=== PATIENT | female | born 1995 | race Caucasian/White ===

== ENCOUNTER → 2016-09-09 | Outpatient (CLI) | payer OTHER ==
[~2016-09-09] MED LIST: ALBU1AER9; DOXY25TA7 PO; PRENTAB26 PO
[2016-09-09 18:53] LABS: URINE APPEARANCE CLEAR (CLEAR); URINE BILIRUBIN NEG (NEG); URINE COLOR YELLOW; URINE NITRITE POS (NEG); URINE SPECIFIC GRAVITY 1.013 (1.000-1.030); UROBILINOGEN NEG (NEG)
[2016-09-09 18:58] LABS: MANUAL MICROSCOPIC REQUIRED? NO; REVIEW REQ? NO
[2016-09-12 13:22] LABS: CHLAMYDIA TRACH RNA*** NOT DETECTED (NOT DETECTED); GC (NEIS GONORRHOEAE)RNA** NOT DETECTED (NOT DETECTED)
== END | disposition home or self-care (01) ==
LOC: C.LABSPEC 17:35
PROVIDERS: ATTEND Obstetrics & Gynecology
DX: Z34.81 Encounter for supervision of other normal pregnancy, first trimester (principal)

== ENCOUNTER → 2016-09-09 | Outpatient (CLI) | payer OTHER ==
[2016-09-09 17:27] LABS: COMPLETE YES; EOS % 0.2 %; HEMATOCRIT 35.7 % (37-47); IG% 0.1 %; LYMPH % 23.1 %; LYMPH ABS # 2.23 K/uL (1.2-3.4); MEAN CELL VOLUME 90.2 fL (80-100); MEAN CORPUSCULAR HEMOGLOBIN 31.1 pg (25-34); MEAN CORPUSCULAR HGB CONC 34.5 g/dl (32-36); MEAN PLATELET VOLUME 9.9 fL (7.4-10.4); MONO % 4.9 %; NEUT % 71.7 %; PLATELET COUNT 331 K/uL (130-400); RED BLOOD COUNT 3.96 M/uL (4.2-5.4); WHITE BLOOD COUNT 9.66 K/uL (4.8-10.8)
== END | disposition home or self-care (01) ==
LOC: C.LAB1850 16:24
PROVIDERS: ATTEND Obstetrics & Gynecology
DX: Z34.81 Encounter for supervision of other normal pregnancy, first trimester (principal)

== ENCOUNTER → 2016-10-13 | Outpatient (CLI) | payer OTHER | END | disposition home or self-care (01) | LOC: C.LAB1850 14:24 | PROVIDERS: ATTEND Obstetrics & Gynecology | DX: O23.40 Unspecified infection of urinary tract in pregnancy, unspecified trimester (principal) ==

== ENCOUNTER → 2016-10-30 | Outpatient (CLI) | payer OTHER ==
[2016-10-30 11:07] LABS: GTGD 50 Grams
== END | disposition home or self-care (01) ==
LOC: C.LAB1850 09:20
PROVIDERS: ATTEND Obstetrics & Gynecology
DX: Z34.82 Encounter for supervision of other normal pregnancy, second trimester (principal)

== ENCOUNTER → 2016-11-10 | Outpatient (CLI) | payer OTHER ==
[2016-11-10 17:56] LABS: URINE APPEARANCE CLEAR (CLEAR); URINE BILIRUBIN NEG (NEG); URINE COLOR YELLOW; URINE NITRITE NEG (NEG); URINE PH 7.5 (4.5-7.5); URINE SPECIFIC GRAVITY 1.012 (1.000-1.030); UROBILINOGEN NEG (NEG)
[2016-11-10 17:58] LABS: MANUAL MICROSCOPIC REQUIRED? NO; REVIEW REQ? YES
== END | disposition home or self-care (01) ==
LOC: C.LAB1850 16:41
PROVIDERS: ATTEND Obstetrics & Gynecology
DX: O26.892 Other specified pregnancy related conditions, second trimester (principal); Z3A.00 Weeks of gestation of pregnancy not specified

== ENCOUNTER → 2016-11-27 | Outpatient (CLI) | payer OTHER | END | disposition home or self-care (01) | LOC: C.LABSPEC 11:28 | PROVIDERS: ATTEND Obstetrics & Gynecology | DX: O23.42 Unspecified infection of urinary tract in pregnancy, second trimester (principal); Z3A.00 Weeks of gestation of pregnancy not specified ==

== ENCOUNTER → 2016-12-11 | Outpatient (CLI) | payer OTHER ==
[2016-12-11 18:05] LABS: URINE APPEARANCE CLEAR (CLEAR); URINE BILIRUBIN NEG (NEG); URINE COLOR YELLOW; URINE EPITHELIAL CELL AUTO 20-30 /lpf (0-5); URINE NITRITE NEG (NEG); URINE SPECIFIC GRAVITY 1.018 (1.000-1.030); UROBILINOGEN NEG (NEG)
[2016-12-11 18:07] LABS: MANUAL MICROSCOPIC REQUIRED? NO; REVIEW REQ? NO
== END | disposition home or self-care (01) ==
LOC: C.LABSPEC 17:29
PROVIDERS: ATTEND Obstetrics & Gynecology
DX: O26.892 Other specified pregnancy related conditions, second trimester (principal); Z3A.00 Weeks of gestation of pregnancy not specified

== ENCOUNTER → 2017-01-21 | Outpatient (CLI) | payer OTHER ==
[2017-01-21 15:37] LABS: URINE APPEARANCE CLOUDY (CLEAR); URINE BILIRUBIN NEG (NEG); URINE COLOR YELLOW; URINE EPITHELIAL CELL AUTO >30 /lpf (0-5); URINE NITRITE NEG (NEG); URINE PH >= 9.0 (4.5-7.5); URINE SPECIFIC GRAVITY 1.016 (1.000-1.030); UROBILINOGEN NEG (NEG)
[2017-01-21 15:50] LABS: MANUAL MICROSCOPIC REQUIRED? NO; REVIEW REQ? YES
== END | disposition home or self-care (01) ==
LOC: C.LABSPEC 14:59
PROVIDERS: ATTEND Obstetrics & Gynecology
DX: Z34.83 Encounter for supervision of other normal pregnancy, third trimester (principal)

== ENCOUNTER → 2017-01-21 | Outpatient (CLI) | payer OTHER ==
[2017-01-21 12:35] LABS: HEMATOCRIT 32.9 % (37-47)
[2017-01-21 14:16] LABS: GTGD 50 Grams
== END | disposition home or self-care (01) ==
LOC: C.LAB1850 10:03
PROVIDERS: ATTEND Obstetrics & Gynecology
DX: Z34.83 Encounter for supervision of other normal pregnancy, third trimester (principal)

== ENCOUNTER 2017-02-06 17:06 | Outpatient (CLI) | payer OTHER ==
[2017-02-06] MEDS ORDERED: TERBUTALINE SULFATE 1 MG/ML VIAL SQ PRN (18:30)
[2017-02-06] MEDS ORDERED: LACTATED RINGER'S 1000ML 500 ML IV ONE (18:30)
--- NOTE | 2017-02-06 19:15 | DIAGNOSTIC IMAGING REPORT ---
LIMITED (US) CLINICAL HISTORY: Equivocal ruptured membranes- check XUAN. COMPARISON STUDY: ultrasound November 27, 2016. TECHNIQUE: Transabdominal sonography of the fetus was performed. FINDINGS: A single viable intrauterine gestation is noted. heart rate is normal at 134 bpm. Cervix is closed, measuring approximately 3.7 cm in length. Amniotic fluid index measures 16.7 cm. Placenta is located anteriorly. No placental abnormalities are identified. Please note that a dedicated anatomical survey was not performed. Position is vertex. IMPRESSION: 1. Single viable intrauterine gestation with normal heart rate of 134 bpm. 2. Normal amniotic fluid index of 16.7 cm. 3. Closed cervix, measuring approximately 3.7 cm in length. Electronically signed by: Alan Herrera M.D. 02/06/2017 7:14 PM Dictated Date/Time: 02/06/2017 7:08 PM
--- NOTE | 2017-02-06 21:26 | HISTORY & PHYSICAL EXAMINATION ---
DATE OF ADMISSION: 02/06/2017 HISTORY OF PRESENT ILLNESS: The patient is a 21-year-old 3, para 1-0-1-1 white female, EDC of 04/10/2016; who presents at 31 weeks with a history of leaking fluid from her vagina. She was seen in the office initially by my partner Dr. Galvan who felt that Nitrazine was positive and that she did see ferning. She was sent to labor and delivery for further evaluation to confirm the presence of ruptured membranes. Upon arrival here, a speculum exam was performed and there was some mucus type discharge, Nitrazine was equivocal and there was no evidence of ferning. An AmniSure was done at that time and it was faintly positive. The patient also had an FFN at that time. She was having some cramping, but it was mild cramping. Baby was reactive and category 1 on the monitor. An AmniSure was repeated and it again was faintly positive, again ferning was negative and Nitrazine was equivocal. There was no pooling of amniotic fluid. Again, there was some mucousy discharge. FFN came back and was reported as positive. The patient received 1 dose of terbutaline because of the cramping and mild contractions on the monitor, waiting for the FFN to be resulted. She also received 1 liter of lactated Ringer's for hydration. She feels the cramping is better, again the baby continues to look category 1. She was sent for an ultrasound because of the equivocal nature of all of these studies. Amniotic fluid index was 16.7 with a cervical length of 3.7 cm. She has not noted any further significant leakage of fluid since her arrival here in labor and delivery. After discussion with the maternal medicine doctor at [facility], Dr. Lizarraga, he recommended reevaluating either at [facility] or here in labor and delivery at [facility] tomorrow morning. Because of the positive AmniSure and the FFN being positive, after some discussion, the patient will be seen at [facility] for further evaluation this evening. Based on their findings, we will await the recommendation as far as further testing and any need to transfer to home or to remain admitted at [facility]. Her first was completely uncomplicated except for some irritability of her uterus, although she did deliver at 38 weeks. She has no other medical issues. No allergies. GBS status is unknown at this time. PHYSICAL EXAMINATION: ABDOMEN: Soft and nontender. PELVIC: Cervix exam was deferred except for speculum exam which revealed the cervix appeared to be long and closed with egg white type discharge present. There was no bleeding noted. ASSESSMENT: A 31-week intrauterine with equivocal evidence of ruptured membranes and a positive fibronectin. We will have her be evaluated at [facility] for further assessment of ruptured membranes and possible labor. Based on those findings, we will follow [facility] recommendations for further testing or assessment. WERNER
== END 2017-02-06 21:43 | disposition home or self-care (01) ==
LOC: C.OPB 17:06 → C.LD 17:06 → C.OPB 21:43
PROVIDERS: ATTEND Obstetrics & Gynecology
DX: O62.9 Abnormality of forces of labor, unspecified (principal); Z3A.31 31 weeks gestation of pregnancy

== ENCOUNTER 2017-02-09 15:55 | Outpatient (CLI) | payer OTHER ==
[~2017-02-09] VITALS: Ht 165.1 cm; Wt 66.4 kg
[2017-02-09 16:30] VITALS: Ht 165.1 cm; Wt 66.4 kg
== END 2017-02-09 17:11 | disposition home or self-care (01) ==
LOC: C.LD 15:55 → C.OPB 15:55
PROVIDERS: ATTEND Obstetrics & Gynecology
DX: O26.893 Other specified pregnancy related conditions, third trimester (principal); Z3A.31 31 weeks gestation of pregnancy; R10.9 Unspecified abdominal pain

== ENCOUNTER 2017-02-17 10:48 | Outpatient (CLI) | payer OTHER ==
[~2017-02-17] VITALS: Ht 168.9 cm; Wt 66.4 kg
[2017-02-17 11:15] VITALS: Ht 168.9 cm; Wt 66.4 kg
[2017-02-17] MEDS ORDERED: ALBUTEROL HFA 8 GM INHALER INH PRN (11:30)
[2017-02-17 11:44] LABS: BASO % 0.1 %; BASO ABS # 0.01 K/uL (0-0.2); COMPLETE YES; EOS % 0.3 %; HEMATOCRIT 29.4 % (37-47); IG% 0.9 %; LYMPH % 22.1 %; LYMPH ABS # 2.02 K/uL (1.2-3.4); MEAN CELL VOLUME 95.8 fL (80-100); MEAN CORPUSCULAR HEMOGLOBIN 32.9 pg (25-34); MEAN CORPUSCULAR HGB CONC 34.4 g/dl (32-36); MEAN PLATELET VOLUME 9.7 fL (7.4-10.4); MONO % 5.6 %; PLATELET COUNT 244 K/uL (130-400); RED BLOOD COUNT 3.07 M/uL (4.2-5.4); WHITE BLOOD COUNT 9.16 K/uL (4.8-10.8)
[2017-02-17] MEDS ORDERED: BETAMETH SOD PHOS/ACETATE IA 6 MG/ML IM SCH (12:15)
[2017-02-17] MEDS ORDERED: INFLUENZA ADMINISTRATION CHARGE ONE (12:30)
[2017-02-17] MEDS ORDERED: INFLUENZA VIRUS QUAD VACCINE 0.5 ML SYR IM. ONE (12:30)
--- NOTE | 2017-02-17 14:47 | DIAGNOSTIC IMAGING REPORT ---
LIMITED (US) CLINICAL HISTORY: Evaluate for premature rupture of membranes. 32 week gestation. COMPARISON STUDY: ultrasound February 06, 2017. TECHNIQUE: Transabdominal sonography of the pelvis was performed. FINDINGS: A single viable intrauterine gestation is noted. heart rate is normal at 149 bpm. Presentation is cephalic. Please note that a dedicated anatomical survey was not performed. Amniotic fluid index is normal at 13.4 cm. Cervix measures 3.1 cm in length and appears closed. Placenta is located anteriorly. No placental abnormality is identified. IMPRESSION: 1. Single viable intrauterine gestation with normal heart rate of 149 bpm. 2. Normal amniotic fluid index of 13.4 cm. 3. Closed cervix, measuring approximately 3.1 cm in length. Electronically signed by: Alan Herrera M.D. 02/17/2017 2:45 PM Dictated Date/Time: 02/17/2017 2:39 PM
--- NOTE | 2017-02-17 15:41 | Discharge Instructions ---
Discharge Instructions Date of Service Feb 17, 2017. Admission Reason for Admission: R/O Rupture Of Membranes Discharge Discharge Diagnosis / Problem: leaking fluid at 32 weeks Discharge Goals Goal(s): Continuing OB care Activity Recommendations Activity Limitations: per Instructions/Follow-up section pelvic rest until further notice. . Instructions / Follow-Up Instructions / Follow-Up ACTIVITY RECOMMENDATIONS: See Labor Sheet. SPECIAL CARE INSTRUCTIONS: Call Doctor if: * Regular contractions greater than 5 contractions in one hour. * Bleeding * Water breaks or is leaking- large gush of fluid. More than current leakage. * Decreased movement * Fever >100.4 degrees F * Pain not relieved by routine measures or pain medication ordered. FOLLOW UP VISIT: Return to Labor and Delivery on 02/18 at 12:30 for second celestone injection/ call for appointment time . Follow-up Visit with: 02/21 at 10 AM at the [facility] [place] [place] 02/24 at 10:30 AM at the office as well for ultrasound for fluid check, NST, and doctor visit. Current Hospital Diet Patient's current hospital diet: Regular OB Diet Discharge Diet Recommended Diet: Regular Diet Pending Studies Studies pending at discharge: no Work Instructions Return To Work: after follow-up Lifting Limitations: no more than 20 pounds Additional Instructions: She should be off work until further notice. NO heavy lifting over 20-25 pounds. She needs to be on modified activity until further notice because of complications with her . Medical Emergencies . Who to Call and When: Medical Emergencies: If at any time you feel your situation is an emergency, please call 911 immediately. . Non-Emergent Contact Non-Emergency issues call your: Cardiac Surgeon Call Non-Emergent contact if: temperature is above 100.5, your pain is unusual for you . . "Provider Documentation" section prepared by Caitlin Linder. . VTE Core Measure Inpt VTE Proph given/why not?: Treatment not indicated
[2017-02-18] MEDS ORDERED: PRENATAL VITAMIN TAB PO SCH (08:00)
== END 2017-02-17 16:16 | disposition home or self-care (01) ==
LOC: C.LD 10:48 → C.OPB 10:48
PROVIDERS: ATTEND Obstetrics & Gynecology
DX: O26.893 Other specified pregnancy related conditions, third trimester (principal); Z3A.32 32 weeks gestation of pregnancy

== ENCOUNTER → 2017-02-17 | Outpatient (CLI) | payer OTHER ==
[~2017-02-17] MED LIST changes: -DOXY25TA7 PO
[2017-02-17 10:00] LABS: AMNIS INTERNAL NEGATIVE QC NEG CLEAR BACKGROUND; AMNIS INTERNAL POSITIVE QC POS CONTROL LINE
[2017-02-17 10:02] LABS: AMNISURE POS
[2017-02-17 11:19] LABS: URINE APPEARANCE CLEAR (CLEAR); URINE BILIRUBIN NEG (NEG); URINE COLOR YELLOW; URINE EPITHELIAL CELL AUTO >30 /lpf (0-5); URINE NITRITE NEG (NEG); URINE SPECIFIC GRAVITY 1.018 (1.000-1.030); UROBILINOGEN NEG (NEG)
[2017-02-17 11:27] LABS: MANUAL MICROSCOPIC REQUIRED? NO; REVIEW REQ? NO
== END | disposition home or self-care (01) ==
LOC: C.LABSPEC 09:55
PROVIDERS: ATTEND Obstetrics & Gynecology
DX: O26.93 Pregnancy related conditions, unspecified, third trimester (principal); O42.90 Premature rupture of membranes, unspecified as to length of time between rupture and onset of labor, unspecified weeks of gestation; Z3A.00 Weeks of gestation of pregnancy not specified

== ENCOUNTER 2017-02-18 12:29 | Outpatient (CLI) | payer OTHER ==
[2017-02-18] MEDS ORDERED: BETAMETH SOD PHOS/ACETATE IA 6 MG/ML IM SCH (12:45)
--- NOTE | 2017-02-20 08:09 | EDITING REQUIRED CODING QUERY ---
DIAGNOSIS NEEDED To promote full compliance with coding requirements relating to patient care, physician participation is requested in all cases of acid condenser uncertainty. Please assist us with the question(s) below: Coding Question: The patient received care in labor and delivery on 02/18/17 as noted within the record. Please document the diagnosis that is being addressed by the medication/treatment. Provider Response: DIAGNOSIS:32 weeks gestation Leaking amniotic fluid Thank you for your assistance, Shelbi Wolf - [facility]
== END 2017-02-18 12:48 | disposition home or self-care (01) ==
LOC: C.OPB 12:29 → C.LD 12:30 → C.OPB 12:48
PROVIDERS: ATTEND Obstetrics & Gynecology
DX: O26.893 Other specified pregnancy related conditions, third trimester (principal); Z3A.32 32 weeks gestation of pregnancy

== ENCOUNTER → 2017-02-24 | Outpatient (CLI) | payer OTHER ==
[2017-02-24 10:38] LABS: BASO % 0.2 %; BASO ABS # 0.02 K/uL (0-0.2); COMPLETE YES; EOS % 0.5 %; HEMATOCRIT 32.7 % (37-47); IG% 1.5 %; LYMPH % 30.2 %; LYMPH ABS # 2.75 K/uL (1.2-3.4); MEAN CORPUSCULAR HEMOGLOBIN 32.3 pg (25-34); MEAN CORPUSCULAR HGB CONC 33.3 g/dl (32-36); MEAN PLATELET VOLUME 10.1 fL (7.4-10.4); MONO % 7.9 %; NEUT % 59.7 %; PLATELET COUNT 252 K/uL (130-400); RED BLOOD COUNT 3.37 M/uL (4.2-5.4)
== END | disposition home or self-care (01) ==
LOC: C.LAB1850 09:28
PROVIDERS: ATTEND Obstetrics & Gynecology
DX: O42.90 Premature rupture of membranes, unspecified as to length of time between rupture and onset of labor, unspecified weeks of gestation (principal)

== ENCOUNTER → 2017-03-03 | Outpatient (CLI) | payer OTHER ==
[2017-03-03 12:12] LABS: BASO % 0.1 %; BASO ABS # 0.01 K/uL (0-0.2); EOS % 0.1 %; EOS ABS # 0.01 K/uL (0-0.5); HEMATOCRIT 34.4 % (37-47); HEMOGLOBIN 11.5 g/dL (12.0-16.0); IG# 0.09 K/uL (0.00-0.02); LYMPH % 14.1 %; MEAN CELL VOLUME 96.6 fL (80-100); MEAN CORPUSCULAR HEMOGLOBIN 32.3 pg (25-34); MEAN CORPUSCULAR HGB CONC 33.4 g/dl (32-36); MEAN PLATELET VOLUME 10.5 fL (7.4-10.4); MONO % 6.7 %; MONO ABS # 0.67 K/uL (0.11-0.59); NEUT % 78.1 %; NEUT ABS # 7.75 K/uL (1.4-6.5); PLATELET COUNT 231 K/uL (130-400); RED CELL DISTRIBUTION WIDTH CV 12.5 % (11.5-14.5); RED CELL DISTRIBUTION WIDTH SD 43.7 fL (36.4-46.3); WHITE BLOOD COUNT 9.93 K/uL (4.8-10.8)
== END | disposition home or self-care (01) ==
LOC: C.LAB1850 10:35
PROVIDERS: ATTEND Obstetrics & Gynecology
DX: O42.90 Premature rupture of membranes, unspecified as to length of time between rupture and onset of labor, unspecified weeks of gestation (principal); Z3A.00 Weeks of gestation of pregnancy not specified

== ENCOUNTER → 2017-03-10 | Outpatient (CLI) | payer OTHER ==
[2017-03-10 10:06] LABS: BASO % 0.1 %; BASO ABS # 0.01 K/uL (0-0.2); EOS % 0.8 %; EOS ABS # 0.06 K/uL (0-0.5); HEMOGLOBIN 11.1 g/dL (12.0-16.0); IG# 0.07 K/uL (0.00-0.02); LYMPH % 26.2 %; LYMPH ABS # 2.04 K/uL (1.2-3.4); MEAN CELL VOLUME 96.3 fL (80-100); MEAN CORPUSCULAR HEMOGLOBIN 31.4 pg (25-34); MEAN CORPUSCULAR HGB CONC 32.6 g/dl (32-36); MEAN PLATELET VOLUME 10.4 fL (7.4-10.4); MONO % 5.4 %; MONO ABS # 0.42 K/uL (0.11-0.59); NEUT % 66.6 %; PLATELET COUNT 213 K/uL (130-400); RED CELL DISTRIBUTION WIDTH CV 12.6 % (11.5-14.5)
== END | disposition home or self-care (01) ==
LOC: C.LAB1850 09:30
PROVIDERS: ATTEND Obstetrics & Gynecology
DX: O42.90 Premature rupture of membranes, unspecified as to length of time between rupture and onset of labor, unspecified weeks of gestation (principal)

== ENCOUNTER → 2017-03-17 | Outpatient (CLI) | payer OTHER ==
[2017-03-17 10:14] LABS: BASO % 0.1 %; BASO ABS # 0.01 K/uL (0-0.2); EOS % 0.4 %; EOS ABS # 0.03 K/uL (0-0.5); IG# 0.09 K/uL (0.00-0.02); LYMPH ABS # 2.16 K/uL (1.2-3.4); MEAN CELL VOLUME 96.2 fL (80-100); MEAN CORPUSCULAR HEMOGLOBIN 32.1 pg (25-34); MEAN CORPUSCULAR HGB CONC 33.3 g/dl (32-36); MEAN PLATELET VOLUME 10.4 fL (7.4-10.4); MONO % 7.2 %; MONO ABS # 0.58 K/uL (0.11-0.59); NEUT % 64.2 %; NEUT ABS # 5.14 K/uL (1.4-6.5); PLATELET COUNT 244 K/uL (130-400); RED CELL DISTRIBUTION WIDTH CV 12.5 % (11.5-14.5); RED CELL DISTRIBUTION WIDTH SD 43.7 fL (36.4-46.3); WHITE BLOOD COUNT 8.01 K/uL (4.8-10.8)
== END | disposition home or self-care (01) ==
LOC: C.LAB1850 09:07
PROVIDERS: ATTEND Obstetrics & Gynecology
DX: O42.90 Premature rupture of membranes, unspecified as to length of time between rupture and onset of labor, unspecified weeks of gestation (principal)

== ENCOUNTER → 2017-03-24 | Outpatient (CLI) | payer OTHER ==
[2017-03-24 10:04] LABS: BASO % 0.3 %; BASO ABS # 0.02 K/uL (0-0.2); EOS % 0.3 %; EOS ABS # 0.02 K/uL (0-0.5); HEMATOCRIT 32.1 % (37-47); HEMOGLOBIN 10.6 g/dL (12.0-16.0); IG# 0.04 K/uL (0.00-0.02); LYMPH % 26.9 %; LYMPH ABS # 2.03 K/uL (1.2-3.4); MEAN CELL VOLUME 95.3 fL (80-100); MEAN CORPUSCULAR HEMOGLOBIN 31.5 pg (25-34); MEAN PLATELET VOLUME 10.1 fL (7.4-10.4); MONO % 5.6 %; MONO ABS # 0.42 K/uL (0.11-0.59); NEUT % 66.4 %; NEUT ABS # 5.01 K/uL (1.4-6.5); PLATELET COUNT 206 K/uL (130-400); RED CELL DISTRIBUTION WIDTH CV 12.5 % (11.5-14.5); RED CELL DISTRIBUTION WIDTH SD 43.4 fL (36.4-46.3); WHITE BLOOD COUNT 7.54 K/uL (4.8-10.8)
== END | disposition home or self-care (01) ==
LOC: C.LAB1850 09:01
PROVIDERS: ATTEND Obstetrics & Gynecology
DX: O42.90 Premature rupture of membranes, unspecified as to length of time between rupture and onset of labor, unspecified weeks of gestation (principal); Z3A.00 Weeks of gestation of pregnancy not specified

== ENCOUNTER 2017-03-26 11:36 | Inpatient (IN) | payer OTHER ==
[~2017-03-26] VITALS: Ht 167.6 cm; Wt 65.5 kg
[2017-03-26] MEDS ORDERED: LACTATED RINGER'S 1000ML 1,000 ML IV PRN (11:55)
[2017-03-26] MEDS ORDERED: LACTATED RINGER'S 1000ML 500 ML IV PRN ×2 (12:01→16:50)
[2017-03-26] MEDS ORDERED: OXYTOCIN 30 UNITS/500ML NSS IV PRN ×2 (12:15→19:00)
[2017-03-26 12:29] LABS: HEMATOCRIT 30.7 % (37-47); HEMOGLOBIN 10.4 g/dL (12.0-16.0); MEAN CELL VOLUME 94.5 fL (80-100); MEAN CORPUSCULAR HGB CONC 33.9 g/dl (32-36); PLATELET COUNT 244 K/uL (130-400); RED CELL DISTRIBUTION WIDTH CV 12.2 % (11.5-14.5); RED CELL DISTRIBUTION WIDTH SD 41.5 fL (36.4-46.3)
[2017-03-26] MEDS: LACTATED RINGER'S 1000ML 1,000 ML IV SCH ×2 (13:16→17:59)
--- NOTE | 2017-03-26 13:16 | Medical Student: [facility] ---
Med Student History & Physical Date of Service Mar 26, 2017. Chief Complaint Prom (Premature Rupture Of Membranes) History of Present Illness Source: patient, clinic records, hospital records Patient is a 21 YOF , TANG of 04/10/2017 by LMP and confirmed by ultrasound who presents at 37-6 weeks of GA with rupture of membranes. Patient has had a mostly uncomplicated course except for questionable premature rupture of membranes. The patient initially had a positive amnisure at 32-4 weeks of GA and was sent to [facility] [place]. She was told there that her membranes had not ruptured and returned home. The patient has continued to have leakage of fluid since that time. She has had positive and negative amnisures since her initial positive amnisure at 32-4 weeks of GA. Patient presented to outpatient OB visit this morning and was evaluated by Dr. Earl who reported her being 5cm dilated and had another positive amnisure. The patient is unsure if she has been feeling contractions, however she reports fairly regular "tightening" of her abdomen although she doesn't report it as being "severe enough to call it contractions." She is still leaking some fluid. Patient is O+, Equivocal rubella, GBS negative, HBV negative, VDRL/RPR nonreactive, C/G negative, 1 hr glucose 102. H&H today is 10.4 & 30.7. OB History Patient had a in which resulted in demise at 8-4 weeks of GA and had a D&E performed. Her second resulted in a 7lb 12oz male infant on 07/06/2015 via . SALES CLERK History Unremarkable. Menarche was at age 11, LMP of 07/04/2016. Menses usually occur regularly at 30 day cycles for 5 days. Last pap smear was 08/17/15 which was normal. She has no history of abnormal pap smears. Past Medical History Mild intermittent asthma Past Surgical History D&E Social History Smoking Status: Never Smoker Smokeless Tobacco Use: No Alcohol Use: none Drug Use: none Marital Status: Housing status: lives with family Occupational Status: employed Allergies Coded Allergies: Grass (Verified Allergy, Mild, HIVES, 02/09/17) Home Medications Albuterol (Proair Hfa) Multivit/Min/Iron/Fol Ac/Pren ( Vitamin), 1 TAB PO DAILY Review of Systems Constitutional: No fever, No chills, No sweats Respiratory: No cough, No sputum, No shortness of breath Cardiovascular: No chest pain, No edema, No palpitations Abdomen: No pain, No nausea, No vomiting Musculoskeletal: No calf pain Genitourinary - Female: No dysuria, No urinary urgency, No urinary incontinence , No urinary retention Psychiatric: No depression symptoms Physical Exam General Appearance: WD/WN, no apparent distress Eyes: normal inspection ENT: normal ENT inspection Respiratory/Chest: chest non-tender, lungs clear, normal breath sounds, no respiratory distress, no accessory muscle use Cardiovascular: regular rate, rhythm, no edema, no gallop, no JVD, no murmur Abdomen / GI: normal bowel sounds, non tender, soft, + pertinent finding ( Gravid abdomen. heart tones present. Fetus in vertex position. ) Fundal Height: Full term Genitourinary - Female: external genitalia normal, + pertinent finding ( Cervical exam performed by Dr. Mccann noted cervix to be 5cm dilated, 75% effaced, and -1 station. A bulging amniotic sac was also noted. ) Extremities: normal inspection, no calf tenderness, no pedal edema Neurologic/Psych: no motor/sensory deficits, alert, normal mood/affect, oriented x 3 Skin: normal color, warm/dry, no rash Monitoring External Monitor: Good variability, accels present without decells, category 1 tracing with baseline heartrate of 140. Tocodynamometer: No regular contractions noted. Laboratory Results 03/26/17 12:09 Test 03/26/17 12:09 Red Blood Count 3.25 M/uL (4.2-5.4) Mean Corpuscular Volume 94.5 fL (80-100) Mean Corpuscular Hemoglobin 32.0 pg (25-34) Mean Corpuscular Hemoglobin Concent 33.9 g/dl (32-36) RDW Standard Deviation 41.5 fL (36.4-46.3) RDW Coefficient of Variation 12.2 % (11.5-14.5) Mean Platelet Volume 10.0 fL (7.4-10.4) Assessment and Plan Assessment: 21 YOF at 37-6 weeks of GA presents with premature rupture of membranes. tracing category 1. Plan: Will admit to L&D. Given the patient is multiparous and already dilated 5cm, she is not a good candidate for outpatient expectant monitoring. We will begin pitocin to induce labor. Will hold off on rupturing membranes for the time -being. Discussion was had with the patient and her and they are in agreement with the current plan to induce labor. We will continue with EFM and tocometry.
[2017-03-26 15:01] VITALS: Ht 167.6 cm; Wt 65.5 kg
[2017-03-26] MEDS ORDERED: BUPIVACAINE 0.25% 30 ML VIAL ONE (15:44)
[2017-03-26] MEDS ORDERED: EpHEDrine SULFATE INJ 50 MG/ML AMP ONE (15:45)
[2017-03-26] MEDS ORDERED: FENTANYL CITRATE INJ 50 MCG/1 ML 2 ML VIAL ONE (15:45)
[2017-03-26] MEDS ORDERED: FENTANYL 2MCG/ML ROPIV 1.25MG/ML 100ML BAG EPI ONE (15:46)
[2017-03-26] MEDS ORDERED: NALOXONE HCL INJ 1 MG in SODIUM CHLORIDE 0.9% 1000ML 1,000 ML IV PRN (16:50)
[2017-03-26] MEDS ORDERED: DiphenhydrAMINE HCL 50 MG/ML VIAL IV PRN (17:00)
[2017-03-26] MEDS ORDERED: NALBUPHINE HCL INJ 10 MG/ML AMP IV PRN (17:00)
[2017-03-26] MEDS ORDERED: EpHEDrine SULFATE INJ 50 MG/ML AMP IV PRN (17:00)
[2017-03-26] MEDS ORDERED: ONDANSETRON INJ 2 MG/ML 2 ML VIAL IV PRN (17:00)
[2017-03-26] MEDS ORDERED: NALOXONE HCL INJ 0.4 MG/1 ML VIAL/CARP IV PRN (17:00)
[2017-03-26] MEDS ORDERED: FENTANYL 2MCG/ML ROPIV 1.25MG/ML 100ML BAG EPI PRN (17:00)
[2017-03-26] MEDS ORDERED: OXYCODONE/ACETAMINOPHEN 5-325 TAB PO PRN (19:00)
[2017-03-26] MEDS ORDERED: SUPERCREAM 0.870 % 15GM JAR EXT PRN (19:00)
[2017-03-26] MEDS ORDERED: ACETAMINOPHEN 325 MG TAB PO PRN (19:00)
[2017-03-26] MEDS ORDERED: BENZOCAINE 20% AER SPR 82.5 GM CAN EXT PRN (19:00)
[2017-03-26] MEDS ORDERED: ACETAMINOPHEN/CODEINE 300/30MG TAB PO PRN ×2 (19:00)
[2017-03-26] MEDS ORDERED: LANOLIN OINT EXT PRN (19:00)
[2017-03-26] MEDS ORDERED: HYDROCORTISONE ACETATE 25 MG SUPP PR PRN (19:00)
[2017-03-26] MEDS ORDERED: DIPHTHERIA/TETANUS/PERTUSSIS 0.5 ML SYR/VIAL IM. ONE (19:00)
--- NOTE | 2017-03-26 20:17 | DELIVERY SUMMARY ---
DATE OF OPERATION: 03/26/2017 Martha delivered on 03/26/2017. She had presented to the office with a positive AmniSure and 5 cm. She was 37 weeks and 6 days. Once in labor and delivery, we augmented with Pitocin. Group B strep negative and eventually performed rupture of membranes after epidural. Her heart rate tracing was category 1 with some brief episodes of variables and then she was fully dilated. She pushed only over a few contractions, delivering a baby in left occiput anterior position. Mouth and nares suctioned. There was a loose nuchal cord passed over the head. Gentle traction was used on the baby, no excessive force combined, with maternal expulsive effort, the baby was delivered without difficulty. Live vigorous infant. Cored clamped and cut. Cord gas was obtained. Cord blood obtained. Placenta removed with gentle traction. A small first-degree tear repaired with 3-0 Vicryl. Sponge and instrument counts correct. Estimated blood loss 150 mL. I attest to the content of the Intraoperative Record and any orders documented therein. Any exception s are noted below.
[2017-03-26 21:30] VITALS: BP 116/73; PULSE 80; TEMP 36.9; O2SAT 97
--- NOTE | 2017-03-26 22:36 | Anesthesia Procedure Note ---
Anesthesia Epidural Removal Nt Date & Time Mar 26, 2017 at 22:36 Vital Signs Pain Intensity: 0.0 Notes Mental Status: alert / awake / arousable, participated in evaluation Nausea / Vomiting: adequately controlled Pain: adequately controlled Airway Patency, RR, SpO2: stable & adequate BP & HR: stable & adequate Hydration State: stable & adequate Neuraxial Anesthesia: was administered, sensory block is resolving Anesthetic Complications: no major complications apparent, pt satisfied with anesthetic care Epidural: removed without complications, with tip intact
[2017-03-26 23:15] VITALS: BP 121/83; PULSE 76; TEMP 36.8; O2SAT 98
[2017-03-27] MEDS: DOCUSATE SODIUM 100 MG CAP PO SCH ×3 (00:23→19:57)
[2017-03-27] MEDS: IBUPROFEN 600 MG TAB PO PRN ×3 (03:49→15:41)
[2017-03-27 04:05] VITALS: BP 123/84; PULSE 69; TEMP 36.4; O2SAT 98
--- NOTE | 2017-03-27 06:53 | Progress Note ---
Subjective Mar 27, 2017. Subjective conversation w/ patient, physical exam, lab review Ambulation: ambulating normally Voiding: no incontinence Diet Tolerance: Regular Diet Lochia: Moderate Objective Vital Signs Date Time Temp Pulse Resp B/P (MAP) Pulse Ox O2 Delivery O2 Flow Rate FiO2 03/27/17 04:05 36.4 69 18 123/84 (97) 98 Room Air 03/26/17 23:15 36.8 76 18 121/83 (96) 98 Room Air 03/26/17 23:15 98 Room Air 03/26/17 21:30 97 Room Air 03/26/17 21:30 36.9 80 18 116/73 (87) 97 Room Air Physical Exam General Appearance: WELL-APPEARING Abdomen: non tender Fundus: Firm Extremities: no calf tenderness Laboratory Results Last 24 Hours Test 03/26/17 12:09 03/27/17 06:46 White Blood Count 7.80 K/uL Red Blood Count 3.25 M/uL Hemoglobin 10.4 g/dL Hematocrit 30.7 % Mean Corpuscular Volume 94.5 fL Mean Corpuscular Hemoglobin 32.0 pg Mean Corpuscular Hemoglobin Concent 33.9 g/dl RDW Standard Deviation 41.5 fL RDW Coefficient of Variation 12.2 % Platelet Count 244 K/uL Mean Platelet Volume 10.0 fL Assessment and Plan Post- Day#: 1 Continue Routine Care: Patient is well she is ambulating tolerating an oral diet she has no extremity pain continue current care
[2017-03-27 07:35] VITALS: BP 126/81; PULSE 70; TEMP 36.4; O2SAT 98
[2017-03-27 07:55] LABS: HEMATOCRIT 28.6 % (37-47); HEMOGLOBIN 9.6 g/dL (12.0-16.0)
[2017-03-27] MEDS: PRENATAL VITAMIN TAB PO SCH (08:16)
[2017-03-27 13:40] VITALS: BP 122/72; PULSE 78; TEMP 37; O2SAT 98
[2017-03-27 15:30] VITALS: BP 107/73; PULSE 80; TEMP 36.6
--- NOTE | 2017-03-27 17:10 | Discharge Instructions ---
Discharge Instructions Date of Service Mar 27, 2017. Admission Reason for Admission: Prom (Premature Rupture Of Membranes) Discharge Discharge Diagnosis / Problem: Spontaneous vaginal delivery Discharge Goals Goal(s): Routine recovery after delivery Medications Continue Dispensed Medications: supercream, dermaplast, tucks, inhaler, lansinoh Activity Recommendations Activity Limitations: per Instructions/Follow-up section . Instructions / Follow-Up Instructions / Follow-Up ACTIVITY RECOMMENDATIONS: * Gradual return to full activity over the next 2-3 weeks. * No lifting - nothing heavier than baby over the next 2-3 weeks. * Do not engage in vigorous exercise, sexual activity or sports until cleared by your physician. * Do not drive or operate any motorized equipment until cleared by your physician. * You may shower/bathe daily. MEDICATIONS: For discomfort or pain, you may use Acetaminophen (Tylenol), Ibuprofen (Advil), or Naproxen (Aleve) following the package directions. For constipation you may use Colace following the package directions. BREAST CARE: If you are not breast feeding: * Wear a supportive bra 24 hours a day for one to two weeks. * Avoid stimulating your breasts and nipples as much as possible during the first few weeks after delivery. * When taking a shower, have the warm water hit your back, not breasts. * When your breasts feel full, apply ice packs. Usually three to four times a day helps ease the discomfort. * Take a mild pain medication (Tylenol / Motrin) when you are uncomfortable. If breast feeding: * Use breast milk to lubricate nipples. Lansinoh cream may be used for sore nipples. You do not need to remove cream prior to breast feeding. If using a different brand of cream, check the label for directions regarding removal of cream prior to nursing. * Wear a supportive bra. * If having problems with breasts or breast feeding, call a securities consultant or your health care provider. EPISIOTOMY CARE: After delivery, if you have an episiotomy (stitches), the following steps will ease discomfort and aid healing. * For the first 24 hours after delivery, place ice packs next to your episiotomy to help reduce swelling. * After the first 24 hour-period, sitz baths, either portable or in the tub, are suggested. A shower with a shower arm sprayed over the episiotomy may be comforting. * Rohini care should be done after each voiding and bowel movement. Squirt warm water from a plastic bottle over the perineum (region of the body between the anus and urinary opening) and pat dry. * Use Dermoplast to ease discomfort. Shake container. Esmond directly over the episiotomy. Place a Tucks on a clean sanitary pad next to your episiotomy. SPECIAL CARE INSTRUCTIONS: When you are discharged from the hospital, it is important for you to follow the instructions listed below: * During the first week at home, you should be able to care for yourself and your baby. In addition, the usual light household activities are encouraged. * Limit your activities to the way you feel. Do not try to clean the house or move furniture. Be sensible. * If you actively engage in sports and have done so up until the time of your delivery, you may resume these activities as soon as you feel able. This may take up to one month or even longer. Use good judgment. * Continue to take your vitamins for at least six weeks after the of your baby. * Your diet need not be limited unless you were on a special diet before your delivery. Breast-feeding mothers need around 2500 calories per day and at least 64-80 ounces of fluid per day (8 to 10 glasses). * You should eat foods from the four major food groups. Crash diets or fad diets are to be avoided. Eating lean meats, fresh fruits and vegetables, low-fat dairy products, high fiber foods and a regular exercise program, will help you get back to your pre- weight without putting your health at risk. * Constipation is sometimes a problem after delivery. Take a mild laxative as needed. If breast feeding, Milk of Magnesia is acceptable to use. You may use a suppository or Fleets enema if no episiotomy. * A daily shower or tub bath is suggested. Be sure to thoroughly and gently dry the perineum. * A bloody vaginal discharge will usually continue until around four weeks post . A small amount of bleeding may continue for as long as six weeks. Vaginal discharge changes from the bright red bleeding after delivery to pink then brownish and finally yellowish-pink before becoming white and disappearing. * Bleeding may increase with activity. Your first period may come in 4-8 weeks. If you are breast feeding, your period may be delayed even longer. * [place] (sex) can begin whenever both you and your partner feel comfortable and do not have any form of genital infection. It is recommended that you wait at least six weeks for internal and external healing to occur. If you have questions, please talk to your health care practitioner. A condom should be used to prevent infection and . * Foreplay, gentle intercourse and lubrication is very important the first several times to prevent pain. A water-based lubricant such as K-Y jelly or Astroglide may be used. * If you have RH negative blood and your baby is RH positive, you will receive RHOGAM by injection prior to discharge. The nurse will give you a card to keep with you that has the date and place that you received RHOGAM after delivery. * During your care, you had a Rubella screen done to check for the presence of rubella antibodies in your blood. If your test was negative, you will receive a Rubella vaccine prior to discharge. This vaccine may cause a fever, soreness at the injection site and flu-like symptoms. If these symptoms persist, notify your health care practitioner. is not advised for one month after a Rubella vaccine. * Verbalizes understanding of car seat law as reviewed with patient nursing. * Car Seat hand-out given and reviewed with patient by nursing. * Shaken baby information reviewed with patient by nursing. Call you doctor if: * Heavy bleeding (saturating several pads an hour) or passing clots the size of your fist. * A fever >101 degrees F (38.3 degrees C) on two occasions four hours apart and /or chills. * Unusual pain in the pelvic or vaginal areas. * "Baby Blues" lasting longer than two weeks. If you have any questions or concerns, call your health care practitioner at . FOLLOW UP VISIT: * Please call the office at to schedule a 6 week examination. It is important you keep this appointment. It is important for you to make arrangements for either yearly or twice yearly check-ups thereafter. Current Hospital Diet Patient's current hospital diet: Regular OB Diet Discharge Diet Recommended Diet: Regular Diet Pending Studies Studies pending at discharge: no Medical Emergencies . Who to Call and When: Medical Emergencies: If at any time you feel your situation is an emergency, please call 911 immediately. . Non-Emergent Contact Non-Emergency issues call your: Primary Care Provider . . "Provider Documentation" section prepared by Terri Quiros. . VTE Core Measure Inpt VTE Proph given/why not?: Treatment not indicated
[2017-03-27 18:40] VITALS: BP 114/79; PULSE 64; TEMP 37; O2SAT 98
[2017-03-27] MEDS ORDERED: BISACODYL 5 MG TABEC PO SCH (20:00)
[2017-03-28] VITALS: BP 118/77; PULSE 55; TEMP 36.5
[2017-03-28] MEDS: IBUPROFEN 600 MG TAB PO PRN (04:47)
[2017-03-28] MEDS ORDERED: BISACODYL 10 MG SUPP PR PRN (07:00)
[2017-03-28 07:06] LABS: HEMATOCRIT 29.9 % (37-47); HEMOGLOBIN 9.9 g/dL (12.0-16.0); MEAN CELL VOLUME 94.3 fL (80-100); MEAN CORPUSCULAR HEMOGLOBIN 31.2 pg (25-34); MEAN CORPUSCULAR HGB CONC 33.1 g/dl (32-36); MEAN PLATELET VOLUME 9.8 fL (7.4-10.4); PLATELET COUNT 250 K/uL (130-400); RED CELL DISTRIBUTION WIDTH CV 12.1 % (11.5-14.5); RED CELL DISTRIBUTION WIDTH SD 41.1 fL (36.4-46.3); WHITE BLOOD COUNT 8.39 K/uL (4.8-10.8)
--- NOTE | 2017-03-28 07:12 | Progress Note ---
Subjective Mar 28, 2017. Subjective conversation w/ patient (pt doing well, says she has been up to the bathroom and denies lightheadedness or dizziness), physical exam, chart review, lab review Voiding: no voiding problems Diet Tolerance: Regular Diet Lochia: Moderate Feeding Type: Breast Feeding Pain: controlled Review of Systems Respiratory: No shortness of breath Cardiac: No chest pain Objective Vital Signs Date Time Temp Pulse Resp B/P (MAP) Pulse Ox O2 Delivery O2 Flow Rate FiO2 03/28/17 00:00 Room Air 03/28/17 00:00 36.5 55 16 118/77 (91) Room Air 03/27/17 18:40 37.0 64 18 114/79 (91) 98 Room Air 03/27/17 15:30 36.6 80 20 107/73 (84) Room Air 03/27/17 15:30 36.6 80 20 107/73 (84) Room Air 03/27/17 15:30 Room Air 03/27/17 13:40 37.0 78 20 122/72 (89) 98 Room Air 03/27/17 07:35 98 Room Air 03/27/17 07:35 36.4 70 20 126/81 (96) 98 Room Air Physical Exam General Appearance: WELL-APPEARING, WD/WN, NO APPARENT DISTRESS Respiratory/Chest: lungs clear, normal breath sounds Cardiovascular: regular rate, rhythm Abdomen: normal bowel sounds, soft Fundus: Firm, Non-Tender, Relation to Umbilicus (2 below U) Extremities: no calf tenderness Laboratory Results Last 24 Hours Test 03/28/17 06:36 White Blood Count 8.39 K/uL Red Blood Count 3.17 M/uL Hemoglobin 9.9 g/dL Hematocrit 29.9 % Mean Corpuscular Volume 94.3 fL Mean Corpuscular Hemoglobin 31.2 pg Mean Corpuscular Hemoglobin Concent 33.1 g/dl RDW Standard Deviation 41.1 fL RDW Coefficient of Variation 12.1 % Platelet Count 250 K/uL Mean Platelet Volume 9.8 fL Assessment and Plan Post- Day#: 2 Continue Routine Care: 21 yof [id number], s/p 1/ O+/Rubella Equivocal/ GBS - Vitals reviewed and wnl Hgb stable, no s/s anemia Pt doing well. Ordered MMR, will need before discharge today. Continue routine care. Counselled on discharge instructions. MAGDALENA MEDINA FMR PGY 1 Resident Tracking Resident Involvement: Resident Care Provided Care Provided: OB Delivery
[2017-03-28] MEDS ORDERED: MEASLES, MUMPS & RUBELLA VIRUS VIAL SQ. ONE (07:15)
[2017-03-28] MEDS: DOCUSATE SODIUM 100 MG CAP PO SCH (08:17)
[2017-03-28] MEDS: PRENATAL VITAMIN TAB PO SCH (08:17)
[2017-03-28 09:00] VITALS: BP 107/65; PULSE 74; TEMP 36.6; O2SAT 99
[2017-03-28 13:22] VITALS: BP_DIAS 65; PULSE 74; TEMP 36.6
== END 2017-03-28 14:40 | disposition home or self-care (01) | DRG 775 ==
LOC: C.LD 11:36 → C.OPB 11:36 → C.LD 11:56 → C.OBG 21:45
PROVIDERS: ADMIT Obstetrics & Gynecology; ATTEND Obstetrics & Gynecology
PROC: 0HQ9XZZ Repair Perineum Skin, External Approach (ICD-10-PCS; principal; 2017-03-26)
PROC: 10E0XZZ Delivery of Products of Conception, External Approach (ICD-10-PCS; principal; 2017-03-26)
DX: O42.92 Full-term premature rupture of membranes, unspecified as to length of time between rupture and onset of labor (principal); O69.81X0 Labor and delivery complicated by cord around neck, without compression, not applicable or unspecified; O70.0 First degree perineal laceration during delivery; Z3A.37 37 weeks gestation of pregnancy; Z37.0 Single live birth

== ENCOUNTER → 2017-03-26 | Outpatient (CLI) | payer OTHER | END | disposition home or self-care (01) | LOC: C.LABSPEC 10:59 | PROVIDERS: ATTEND Obstetrics & Gynecology | DX: O42.90 Premature rupture of membranes, unspecified as to length of time between rupture and onset of labor, unspecified weeks of gestation (principal) ==

== ENCOUNTER 2018-10-20 00:27 | Inpatient (IN) ==
[2018-10-20] MEDS ORDERED: OXYTOCIN 30 UNITS/500 ML BAG IV PRN ×2 (00:40→04:18)
[2018-10-20] MEDS ORDERED: LACTATED RINGER'S 1,000 ML IV PRN (00:40)
[2018-10-20 01:06] LABS: Hematocrit (blood only) 31.9 % (37-47); Hemoglobin 11.1 g/dL (12.0-16.0); Mean Corpuscular Volume 92.2 fL (80-100); Mean Platelet Volume 9.6 fL (7.4-10.4); Platelet Count 242 K/uL (130-400); RDW Coefficient of Variation 12.6 % (11.5-14.5); RDW Standard Deviation 42.3 fL (36.4-46.3); Red Blood Count 3.46 M/uL (4.2-5.4); White Blood Count 12.17 K/uL (4.8-10.8)
[2018-10-20 01:11] LABS: Mean Corpuscular Hgb Conc 34.8 g/dL (32-36)
--- NOTE | 2018-10-20 01:31 | History & Physical Report ---
Date of Service October 20, 2018 Assessment & Plan (1) History of precipitous labor and delivery: Admit to L&D. IV access. EFM/toco. Labs. Anticipate . History of Present Illness Chief Complaint: contractions Primary Care Provider: TAYLOR PCP 23yo @ 39 0/7 presents with regular ctx. No vaginal bleeding, no leaking of fluid. + movement. complicated by h/o rapid labor in prior . Allergies Allergy/AdvReac Type Severity Reaction Status Date / Time grass pollen-perennial rye, Allergy Mild HIVES Verified 10/12/18 10:08 standar No Known Drug Allergies Allergy Verified 10/19/18 09:23 Home Medications Home Medications Medication Instructions Recorded Confirmed Type albuterol sulfate [ProAir HFA] 2 puff INHALATION Q6H PRN 10/16/18 10/20/18 History vit-iron fum-folic ac 1 tab PO DAILY 10/16/18 10/20/18 History [ Vitamin] Patient History Medical History UTI (urinary tract infection) (Chronic) ADHD Anemia Asthma Depression No current medications. Patient Prozac when she was not or breatfeeding. PROM (premature rupture of membranes) Premature uterine contractions Pyelonephritis (07/29/13) Renal colic on left side (07/29/13) [place] teeth extracted Surgical History [place] teeth extracted (Resolved) History of dilatation and curettage Family History Other Diabetes Skin cancer Stroke Social History Preferred Language: [place] Communication Ability: Effective Mogul Operator Required: No Beliefs That Will Affect Care: None marital status: Current Living Situation: Significant Other Other Information That Helps Us Care for You: No Feels Safe at Home: Yes Safety Concerns: Feels Safe At This Time Smoking Status: Former smoker Hx Alcohol Use: No Hx Substance Use: No Review of Systems All systems reviewed & are unremarkable except as noted in HPI & below Physical Exam Physical Exam: Gen: AAOx3 NAD CV: RRR L: CTAB Abd: soft, gravid, NTTP Ext: no edema SVE: 6/100/-1 FHT: 120s, mod rica, +accels, no decels [place] Q 2 Results & Data Vital Signs (Past 12 Hours) Vital Signs Temp Pulse Resp BP 10/20/18 00:52 37.0 C 86 20 124/75 10/20/18 00:37 86 124/75
[2018-10-20] MEDS ORDERED: BUPIVACAINE 0.25% 30 ML VIAL ONE (01:36)
[2018-10-20] MEDS ORDERED: ePHEDrine sulfate 50 MG/ML AMP ONE (01:37)
[2018-10-20] MEDS ORDERED: fentaNYL citrate 100 MCG/2 ML VIAL ONE (01:37)
[2018-10-20] MEDS ORDERED: fentaNYL 2MCG/ML ROPIV 1.25MG/ML 100 ML BAG EPI ONE (01:37)
--- NOTE | 2018-10-20 01:45 | Anesthesiology Consultation ---
Date of Service October 20, 2018 Assessment & Plan (1) Encounter for pre-operative examination: Chart Review Chart Review: Acceptable Risk for Labor Epidural History Height/Weight Height: 5 ft 6 in Weight: 69.853 kg Allergies Allergy/AdvReac Type Severity Reaction Status Date / Time grass pollen-perennial rye, Allergy Mild HIVES Verified 10/12/18 10:08 standar No Known Drug Allergies Allergy Verified 10/19/18 09:23 Medications Home Medications Medication Instructions Recorded Confirmed Last Taken albuterol sulfate [ProAir HFA] 2 puff INHALATION Q6H PRN 10/16/18 10/20/18 Unknown vit-iron fum-folic ac 1 tab PO DAILY 10/16/18 10/20/18 1 Day Ago [ Vitamin] ~10/19/18 Active Medications Generic Name Dose Route Start Last Admin Trade Name Freq PRN Reason Stop Dose Admin Lactated Ringer's 1,000 mls @ 125 mls/hr 10/20/18 00:40 10/20/18 01:04 Lr IV 10/22/18 00:39 999 mls/hr .Q8H PRN Administration L&D Protocol Protocol Past Medical History Medical History UTI (urinary tract infection) (Chronic) ADHD Anemia Asthma Depression No current medications. Patient Prozac when she was not or breatfeeding. PROM (premature rupture of membranes) Premature uterine contractions Pyelonephritis (07/29/13) Renal colic on left side (07/29/13) [place] teeth extracted Past Family History Family History Other Diabetes Skin cancer Stroke Past Surgical History Surgical History [place] teeth extracted (Resolved) History of dilatation and curettage Social History Smoking Status: Former smoker Hx Alcohol Use: No Hx Substance Use: No substance use type: does not use Physical Exam Vital Signs Last Vital Signs Temp 37.0 C 10/20/18 00:52 Pulse 86 10/20/18 00:52 Resp 20 10/20/18 00:52 BP 124/75 10/20/18 00:52 Testing Laboratory Results 10/20/18 00:56
[2018-10-20] MEDS ORDERED: ONDANSETRON INJ 2 MG/ML 2 ML VIAL IV PRN (02:13)
[2018-10-20] MEDS ORDERED: fentaNYL 2MCG/ML ROPIV 1.25MG/ML 100 ML BAG EPI PRN (02:13)
[2018-10-20] MEDS ORDERED: NALOXONE HCL 1 MG in SODIUM CHLORIDE 0.9% 1000ML 1,000 ML IV PRN (02:13)
[2018-10-20] MEDS ORDERED: NALOXONE HCL 0.4 MG/1 ML VIAL/CARP IV PRN (02:13)
[2018-10-20] MEDS ORDERED: ePHEDrine sulfate 50 MG/ML AMP IV PRN (02:13)
--- NOTE | 2018-10-20 02:29 | Obstetrical Progress Note ---
Date of Service October 20, 2018 Subjective Comfortable with epidural. AROM performed, clear fluid. FHT Cat 1 Schlater Q 2-3 SVE 7/100/0 Anticipate . Results & Data Vital Signs (Past 12 Hours) Vital Signs Temp Pulse Resp BP Pulse Ox 10/20/18 02:21 127 H 108/59 L 99 10/20/18 02:16 119 H 107/55 L 99 10/20/18 02:14 120 H 111/55 L 10/20/18 02:12 98 H 115/55 L 10/20/18 02:11 95 H 98 10/20/18 02:10 91 H 119/55 L 10/20/18 02:08 95 H 122/62 10/20/18 02:06 93 H 109/65 98 10/20/18 02:04 105 H 109/67 10/20/18 02:02 109 H 110/74 10/20/18 02:01 105 H 99 10/20/18 01:56 108 H 99 10/20/18 01:51 96 H 99 10/20/18 00:52 37.0 C 86 20 124/75 10/20/18 00:37 86 124/75 PG Care Time/CCT Total # of Minutes Spent Total Time Spent with Patient: Total time spent is greater than 50% in coordination of care (as documented) at patient's floor/unit and/or counseling patient:
--- NOTE | 2018-10-20 04:01 | Delivery Summary ---
Vaginal Delivery Summary Date of Service October 20, 2018 Vaginal Delivery Summary Vaginal Delivery Summary: Pre-delivery diagnoses: 23yo @ 39 0/7, spontaneous labor Post-delivery diagnoses: same Procedure: spontaneous vaginal delivery Surgeon: Marianne Bey DO Complications: none Findings: Viable male . Apgars: 8/9 . Weight pending, please see nursery records. Estimated blood loss: 300ml Description of delivery: The patient progressed to complete with epidural anesthesia. She then began to push. She spontaneously vaginally delivered a viable male from the cephalic presentation. The head delivered in FERNANDO position. The anterior shoulder delivered, followed by the posterior shoulder, followed by the body. The baby was placed on mother's abdomen and a spontaneous cry was heard. Delayed cord clamping was employed, and the cord was doubly clamped and cut. Cord blood was obtained. The placenta was delivered spontaneously intact with a 3-vessel cord. The uterus and vagina were swept of clots and debris. IV pitocin was given. The uterus became firm. The cervix, vagina, and perineum were inspected and no lacerations were noted. Excellent hemostasis was observed. The mother and baby are recovering in stable and good condition in the room. Sponge and instrument counts were correct x 2. Marianne Bey DO [facility] [place]
[2018-10-20] MEDS ORDERED: SUPERCREAM 0.870% 15 GM JAR EXT PRN (04:18)
[2018-10-20] MEDS ORDERED: DIPHTHERIA/TETANUS/PERTUSSIS 0.5 ML SYR/VIAL IM ONE (04:18)
[2018-10-20] MEDS ORDERED: ACETAMINOPHEN 325 MG TAB PO PRN (04:18)
[2018-10-20] MEDS ORDERED: HYDROCORTISONE ACETATE 25 MG SUPP PR PRN (04:18)
[2018-10-20] MEDS ORDERED: BENZOCAINE 20% AER SPR 82.5 GM CAN EXT PRN (04:18)
[2018-10-20] MEDS ORDERED: BISACODYL 10 MG SUPP PR PRN (04:18)
[2018-10-20] MEDS ORDERED: ALBUTEROL HFA 8 GM INHALER INH PRN (04:18)
[2018-10-20] MEDS ORDERED: OXYCODONE/ACETAMINOPHEN 5mg/325mg TAB PO PRN (04:18)
--- NOTE | 2018-10-20 07:24 | Anesthesia Procedure Note ---
Date of Service October 20, 2018 Anesthesia Post Epidural Note Vital Signs Vital Signs: Temp Pulse Resp BP Pulse Ox 36.7 C 82 18 112/55 L 100 10/20/18 04:05 10/20/18 05:51 10/20/18 05:50 10/20/18 05:51 10/20/18 03:46 Notes Mental Status: alert / awake / arousable Patient Amnestic to Procedure: Yes Nausea / Vomiting: adequately controlled Pain: adequately controlled Airway Patency, RR, SpO2: stable & adequate BP & HR: stable & adequate Hydration State: stable & adequate Anesthetic Complications: no major complications apparent and Pt Satisfied with anesthetic care Epidural: Removed without complications and With tip intact
[2018-10-20] MEDS: DOCUSATE SODIUM 100 MG CAP PO SCH ×2 (08:39→21:04)
[2018-10-20] MEDS: IBUPROFEN 600 MG TAB PO PRN ×4 (08:39→21:04)
[2018-10-20] MEDS: PRENATAL VITAMIN 1 TAB PO SCH (08:39)
[2018-10-20] MEDS ORDERED: NON-FORMULARY MEDICATION (Prenatal Vit-Iron Fum-Folic Ac [Prenatal Vitamin] 1 TAB) PO SCH (09:00)
[2018-10-21] MEDS: IBUPROFEN 600 MG TAB PO PRN ×3 (00:54→12:25)
--- NOTE | 2018-10-21 07:13 | Obstetrical Progress Note ---
Date of Service <Shahnaz Ball MD - Last Filed: 10/21/18 07:13> October 21, 2018 Assessment & Plan <Shahnaz Ball MD - Last Filed: 10/21/18 07:13> (1) Status post vaginal delivery: Martha is a 23 yo on PPD 1 after at 39w - GBS-, Blood Type O+, Rubella immune -Vitals reviewed and WNL -patient is doing clinically well discharge instruction reviewed - After discharge will have [address] Mar. Subjective <Shahnaz Ball MD - Last Filed: 10/21/18 07:13> Ambulation: ambulating normally Voiding: no voiding problems Passing Gas:: Yes Diet Tolerance:: regular diet Lochia:: Moderate Feeding Type:: breast feeding Current Pain Level(1-10): 2 examined at bedside Constitutional: no fever, no chills and no sweats Eyes: no worsening vision Respiratory: no cough and no dyspnea Cardiovascular: no chest pain, no palpitations, no edema and no calf pain Breast: no breast pain Gastrointestinal: no nausea and no vomiting Genitourinary (female): no dysuria and no urinary frequency Neurologic: no headache(s) Physical Exam <Shahnaz Ball MD - Last Filed: 10/21/18 07:13> Constitutional WD/WN, vitals as above no acute distress Respiratory normal respiratory effort, lungs clear to auscultation does not use accessory muscles Auscultation: no crackles, no rales, no rhonchi, no wheezes and no pleural rub Cardiovascular Rate/Rhythm: regular rate and regular rhythm Heart Sounds: normal S1 and normal S2; no gallop, no murmur and no cardiac rub Extremities: no calf tenderness and no pedal edema Gastrointestinal (Abdomen) Inspection/Auscultation: normal bowel sounds; abdomen not distended Percussion/Palpation: abdomen soft Genitourinary Uterus: fundus firm, palpable 2 cm below the uterus Results & Data <Shahnaz aBll MD - Last Filed: 10/21/18 07:13> Vital Signs (Past 12 Hours) Vital Signs Temp Pulse Pulse Resp BP BP 10/21/18 03:50 36.6 C 60 18 106/69 10/21/18 00:05 36.5 C 60 18 109/71 10/20/18 20:00 36.7 C 59 L 18 122/78 <Mumtaz Mar Jr, MD, FACOG - Last Filed: 10/21/18 08:08> Co-Signing Physician Notes Resident Physician Supervision Note: I was present with Dr. Ball during the history and exam. I discussed the case with the resident and agree with the findings and plan as documented in the note. Any exceptions or clarifications are listed here: Patient desires d/c. Instructions given, f/u in 6 weeks Documented By: Mumtaz Mar Jr, MD, FACOG
[2018-10-21 07:20] LABS: Hematocrit (blood only) 29.8 % (37-47)
[2018-10-21] MEDS: DOCUSATE SODIUM 100 MG CAP PO SCH (08:42)
[2018-10-21] MEDS: PRENATAL VITAMIN 1 TAB PO SCH (08:42)
[2018-10-21] MEDS ORDERED: ALBUTEROL HFA 8 GM INHALER INH ONE (12:29)
[2018-10-21] MEDS ORDERED: BISACODYL 5 MG TABEC PO SCH (20:00)
== END 2018-10-21 15:00 | disposition home or self-care (01) | DRG 807 ==
LOC: OPB 00:27 → 4S1 00:31 → 4S2 07:11

== ENCOUNTER 2021-07-11 10:25 | Inpatient (IN) ==
[2021-07-11] MEDS ORDERED: LACTATED RINGER'S 1,000 ML IV PRN (11:06)
[2021-07-11] MEDS ORDERED: OXYTOCIN 30 UNITS/500 ML BAG IV PRN ×2 (11:06)
--- NOTE | 2021-07-11 11:16 | Labor Progress Brief Note ---
Date of Service July 11, 2021 Subjective Admitted at 39w1d for IOL, due to IUGR. Had ctx last night and thought she might be going into labor, but they petered out and she was able to go to sleep. No ROM, no VB, good FM. Assessment & Plan (1) IUGR (intrauterine growth restriction) affecting care of mother: Plan: Admitted for IOL. Plan pitocin, epidural on request, eventual AROM if needed. H/O precipitous delivery in a multip noted. Admission and Anticipated Discharge Date Admission Date: July 11, 2021 Physical Exam Constitutional: WD/WN, vitals as above Eyes: PERRL, conjunctivae normal, anicteric sclerae ENMT: external ear and nose normal, oropharynx normal Neck: supple Respiratory: normal respiratory effort and able to speak in complete sentences; no respiratory distress Cardiovascular: Rate/Rhythm: regular rate and regular rhythm Gastrointestinal (Abdomen): Gravid / AGA, nontender Musculoskeletal: no cyanosis or clubbing, extremities motor strength 5/5 Skin: no rashes, warm and dry Neurologic: patellar DTR's 2+ bilat, sensation intact Psychiatric: A+Ox3, euthymic affect Genitourinary: Speculum/Bimanual Exam: no vaginal lesions, no vaginal bleeding and uterus nontender OB Exam Abdomen: + vertex and + estimated weight (7) Manual OB Exam: + cervical dilation 4 cm, + cervical effacement 80%, + station -1 and + amniotic fluid (No leaking evident) OB Exam Monitor Tracing: + external FHT monitor used, + external uterine monitor used and + category I Lymphatic: no cervical or axillary lymphadenopathy Results & Data ([facility]) Vital Signs (Past 12 Hours) Vital Signs Pulse Resp BP 07/11/21 10:39 18 07/11/21 10:34 107 H 122/75 Coding Level of Care Code None Diagnoses IUGR (intrauterine growth restriction) affecting care of mother O36.5990
[2021-07-11 11:31] LABS: Hematocrit (blood only) 31.5 % (37-47); Hemoglobin 10.5 g/dL (12.0-16.0); Mean Corpuscular Hgb Conc 33.3 g/dL (32-36); Mean Corpuscular Volume 92.9 fL (80-100); Mean Platelet Volume 9.9 fL (7.4-10.4); Platelet Count 280 K/uL (130-400); RDW Coefficient of Variation 12.2 % (11.5-14.5); RDW Standard Deviation 41.5 fL (36.4-46.3); Red Blood Count 3.39 M/uL (4.2-5.4); White Blood Count 7.76 K/uL (4.8-10.8)
[2021-07-11] MEDS ORDERED: LIDOCAINE 1% LOCAL 20 ML VIAL ONE (15:55)
--- NOTE | 2021-07-11 16:04 | Delivery Summary ---
Vaginal Delivery Summary Date of Service July 11, 2021 Vaginal Delivery Summary DIAGNOSES: 1. Duran intrauterine at 39w1d gestation. 2. Induction of Labor due to IUGR at 39w1d. 3. Group B Streptococcus Neg. PROCEDURE: Spontaneous vaginal delivery without laceration. SURGEON: Alma Rosa Earl MD. POLEYARD SUPERVISOR: None. ESTIMATED BLOOD LOSS: 250 mL. COMPLICATIONS: None. PLACENTA: Spontaneous and intact with a 3-vessel cord. DISPOSITION: Stable to labor and delivery. DESCRIPTION: The patient pushed well and brought the head to in DOA position. The 's head was allowed to deliver with contraction force and no further active pushing, with the perineum protected during this time. There was a loose nuchal cord reduced at the perineum. The right shoulder was anterior. The shoulders and body delivered without any difficulty, and the infant was placed on the maternal abdomen. It was vigorous and moving all extremities, and making respiratory efforts. The cord was doubly clamped by the MD and then cut by the FOB. The placenta delivered spontaneously and was noted to be intact and with a 3VC. The cervix, vagina and perineum were examined and were found to be without defect requiring repair. The fundus was firm and lochia minimal immediately after delivery. [facility] Vaginal Delivery Charge Vaginal Delivery Codes: 77743 global code for the antepartum, delivery, and post-
[2021-07-11] MEDS ORDERED: oxyCODONE/ACETAMINOPHEN 5mg/325mg TAB PO PRN (16:19)
[2021-07-11] MEDS ORDERED: BENZOCAINE 20% AER SPR 82.5 GM CAN EXT PRN (16:19)
[2021-07-11] MEDS ORDERED: HYDROCORTISONE ACETATE 25 MG SUPP PR PRN (16:19)
[2021-07-11] MEDS ORDERED: ACETAMINOPHEN 325 MG TAB PO PRN (16:19)
[2021-07-11] MEDS ORDERED: DIPHTHERIA/TETANUS/PERTUSSIS 0.5 ML SYR/VIAL IM ONE (16:19)
[2021-07-11] MEDS: IBUPROFEN 600 MG TAB PO PRN ×2 (17:51→21:32)
[2021-07-11] MEDS: DOCUSATE SODIUM 100 MG CAP PO SCH (21:30)
--- NOTE | 2021-07-12 05:34 | Obstetrical Progress Note ---
Date of Service <Aric Siddiqui DO - Last Filed: 07/12/21 07:11> July 12, 2021 Assessment & Plan <Aric Siddiqui DO - Last Filed: 07/12/21 07:11> (1) Encounter for care and examination after delivery: 25 yo post day 1 from vaginal delivery, doing well. -Continue routine post care. -vital signs reviewed and WNL. (Tmax 36.8) -Blood type O+, GBS Negative, Rubella Immune -Encourage ambulation, monitor and control pain with Motrin, tylenol PRN, resume regular diet, monitor lochia. -encourage breast feeding. -Discussed discharge with the patient. She would like to go home. Patient will follow up with Dr. Earl in clinic in 6 weeks. <Alma Rosa Earl MD - Last Filed: 07/12/21 07:22> (1) Encounter for care and examination after delivery: Subjective <Aric Siddiqui - Last Filed: 07/12/21 07:11> Ambulation: ambulating normally Voiding: no voiding problems Passing Gas:: Yes Diet Tolerance:: regular diet Lochia:: Small Feeding Type:: breast feeding Current Pain Level(1-10): 0 Review of Systems Denies fever, chills, sweats Denies shortness of breath, difficulty breathing, chest pain, palpitations, chest pressure. Denies breast pain. Denies dysuria. Denies headache or changes in vision Physical Exam <Aric Siddiqui - Last Filed: 07/12/21 07:11> General: Alert, oriented. No acute distress. Cardiac: Regular rate and rhythm, no murmurs/rubs/gallops. Respiratory: Clear to auscultation bilaterally a/p, no wheezes/rales/rhonchi. No increased work of breathing. Symmetrical chest rise. No respiratory distress. Abdomen: Soft, nontender, nondistended. Bowel sounds present. Uterus: Uterine fundus firm, palpable 2 cm below umbilicus. Lower Extremities: No deep calf pain. Results & Data ([facility]) <Aric Siddiqui - Last Filed: 07/12/21 07:11> Vital Signs (Past 12 Hours) Vital Signs Temp Pulse Pulse Resp BP BP Pulse Ox 07/12/21 02:56 36.8 C 81 16 119/75 100 07/11/21 23:11 36.7 C 68 18 117/78 99 07/11/21 19:52 36.8 C 69 16 116/72 98 07/11/21 18:49 82 110/62 07/11/21 18:34 92 H 124/75 07/11/21 18:19 71 119/71 07/11/21 18:04 77 118/68 07/11/21 17:49 77 132/70 07/11/21 17:34 86 116/73 <Alma Rosa Earl MD - Last Filed: 07/12/21 07:22> Co-Signing Physician Notes Resident Physician Supervision Note: I interviewed and examined the patient. Discussed with Dr. Siddiqui and agree with findings and plan as documented in the note. Any exceptions or clarifications are listed here: [ ] Documented By: Alma Rosa Earl MD, FACOG Resident Activity Tracking <Aric Siddiqui DO - Last Filed: 07/12/21 07:11> Resident Involvement: Resident Care Provided Care Provided: OB Delivery
[2021-07-12 07:09] LABS: Hematocrit (blood only) 28.4 % (37-47); Hemoglobin 9.4 g/dL (12.0-16.0); Mean Corpuscular Hemoglobin 31.1 pg (25-34); Mean Corpuscular Hgb Conc 33.1 g/dL (32-36); Platelet Count 265 K/uL (130-400); RDW Coefficient of Variation 12.1 % (11.5-14.5); RDW Standard Deviation 40.9 fL (36.4-46.3); Red Blood Count 3.02 M/uL (4.2-5.4); White Blood Count 10.32 K/uL (4.8-10.8)
[2021-07-12] MEDS: PRENATAL VITAMIN 1 TAB PO SCH (07:20)
[2021-07-12] MEDS: IBUPROFEN 600 MG TAB PO PRN ×4 (07:20→23:04)
[2021-07-12] MEDS: DOCUSATE SODIUM 100 MG CAP PO SCH ×2 (07:20→20:11)
[2021-07-13] MEDS: IBUPROFEN 600 MG TAB PO PRN (04:29)
[2021-07-13 06:54] LABS: Hematocrit (blood only) 28.1 % (37-47); Hemoglobin 9.5 g/dL (12.0-16.0)
[2021-07-13] MEDS: DOCUSATE SODIUM 100 MG CAP PO SCH (07:58)
[2021-07-13] MEDS: PRENATAL VITAMIN 1 TAB PO SCH (07:58)
--- NOTE | 2021-07-13 08:50 | Obstetrical Progress Note ---
Date of Service July 13, 2021 Assessment & Plan (1) Encounter for care and examination after delivery: stable, doing well. ready to go home, aware of nesting. instructions previously reviewed. f/u 6 wk pp check. Day #:: 2 Subjective Ambulation: ambulating normally Voiding: no voiding problems Diet Tolerance:: regular diet Lochia:: Small Feeding Type:: breast feeding doing well, stayed overnight due to baby needed to stay, i was never asked to reverse dc but she was certainly eligible to stay. Constitutional: + as per Subjective / HPI Physical Exam Constitutional WD/WN, vitals as above Respiratory normal respiratory effort, lungs clear to auscultation Cardiovascular Rate/Rhythm: regular rate and regular rhythm Gastrointestinal (Abdomen) Inspection/Auscultation: abdomen normal to inspection Percussion/Palpation: abdomen soft Fundus firm 2cm down Musculoskeletal nt calves no edema Neurologic grossly normal Psychiatric A+Ox3, euthymic affect Results & Data ([facility]) Vital Signs (Past 12 Hours) Vital Signs Temp Pulse Resp BP 07/12/21 23:15 98.1 F 65 18 110/72
== END 2021-07-13 14:38 | disposition home or self-care (01) | DRG 807 ==
LOC: 4S1 10:25 → 4E2 19:10